=== PATIENT | female | born 1965 | race African-American/Black ===

== ENCOUNTER 2023-04-13 14:35 | Emergency (ER) | payer OTHER ==
[2023-04-13 15:09] VITALS: BP 152/65; PULSE 89; RESP 18; TEMP 100.6; BMI 20.6
[2023-04-13] MEDS ORDERED: IBUPROFEN 600 MG TABLET (FP) PO ONE ×2 (15:19→15:37)
[2023-04-13] MEDS ORDERED: ACETAMINOPHEN 500 MG TABLET (FP) PO ONE (15:19)
[2023-04-13] MEDS ORDERED: ACETAMINOPHEN 500 MG TABLET (FP) ONE (15:37)
[2023-04-13 16:14] LABS: EPI CELLS >36 /uL (0-25.1); HYALINE CASTS 2 /uL (0-3.1); URINE APPEARANCE CLEAR; URINE BACTERIA 62 /uL (0-1359); URINE BILIRUBIN NEGATIVE (NEGATIVE); URINE COLOR YELLOW; URINE GLUCOSE (UA) NEGATIVE (NEGATIVE); URINE KETONE TRACE (NEGATIVE); URINE LEUK ESTERASE 1+ (NEGATIVE); URINE NITRITE NEGATIVE (NEGATIVE); URINE PROTEIN TRACE (NEGATIVE); URINE RBC 26 /uL (0-23.9); URINE WBC 31 /uL (0-25.8)
== END 2023-04-13 17:14 | disposition left against medical advice (07) ==
LOC: JER 14:35
DX: R50.9 Fever, unspecified (principal)
CPT/HCPCS: 81003; 87086; 99283-25